=== PATIENT | male | born 1995 | race African-American/Black ===

== ENCOUNTER 2022-01-20 04:24 | Emergency (ER) | payer BC, SELFPAY ==
[2022-01-20 04:33] VITALS: BP 146/88; PULSE 80; RESP 12; TEMP 36.7; O2SAT 100; BMI 23.6
[2022-01-20 04:52] LABS: MANUAL DIFF FLAG NO
[2022-01-20 04:54] LABS: Basophils Absolute Auto 0.1 X10*3/uL (0.0-0.2); Eosinophils Absolute Auto 0.3 X10*3/uL (0.0-0.4); Eosinophils Percent Auto 3.9 % (0-4); Hematocrit 44.5 % (42.0-52.0); Hemoglobin 14.9 g/dl (14.0-18.0); Imm Gran Abs Auto 0.02 X10*3/uL (0.00-0.03); Imm Gran Pct Auto 0.3 % (0.0-0.4); Lymphocytes Absolute Auto 1.9 X10*3/uL (1.2-4.9); Mean Corpuscular HGB Conc 33.5 g/dl (31.0-36.0); Mean Corpuscular Hemoglobin 29.9 pg (27.0-33.0); Mean Corpuscular Volume 89.2 fL (80.0-98.0); Mean Platelet Volume 9.8 fL (9.4-12.4); Monocytes Absolute Auto 0.7 X10*3/uL (0.1-1.2); Monocytes Percent Auto 9.4 % (2-11); Neutrophils Percent Auto 58.4 % (45-73); Platelet Count 277 X10*3/uL (160-400); Red Blood Count 4.99 X10*6/uL (4.60-5.80); Red Cell Distribution Width 12.4 % (11.0-16.0); White Blood Count 6.9 X10*3/uL (4.8-10.8)
[2022-01-20 05:09] LABS: Appearance Urine Clear; Color Urine Yellow; Glucose Urine UA Negative (Negative); Leukocyte Esterase Urine Negative (Negative); Nitrite Urine Negative (Negative); Urine Blood Negative (Negative); Urine Ketones Negative (Negative); Urine Protein Negative (Neg-Trace)
[2022-01-20 05:13] LABS: Alanine Aminotransferase 16 U/L (0-40); Albumin Level 4.6 g/dL (3.5-5.0); Alkaline Phosphatase 54 U/L (39-117); Anion Gap 16 (12-20); Aspartate Amino Transferase 18 U/L (5-37); Bilirubin Total 0.5 mg/dL (0.0-1.0); Blood Urea Nitrogen 18 mg/dL (9-16); Calcium 10.3 mg/dL (8.4-10.2); Carbon Dioxide 24 mmol/L (22-29); Chloride 105 mmol/L (96-108); Creatinine Clr Calc Pharmacy 109.9; Estimated Glomerular Filt Rate > 60; Glucose Random 95 mg/dL (60-115); Potassium 4.4 mmol/L (3.3-5.1); Sodium 141 mmol/L (135-145); Total Protein 8.2 g/dL (6.5-8.0)
[2022-01-20 05:25] LABS: Amphetamine Screen Urine Not Detected (Not Detect); Barbiturates, Urine Not Detected (Not Detect); Benzodiazepines Screen Urine Not Detected (Not Detect); Cannabinoid Screen Urine Not Detected (Not Detect); Cocaine Screen Urine Not Detected (Not Detect); Fentanyl, urine Not Detected (Not Detect); Opiate Screen Urine Not Detected (Not Detect); Phencyclidine Screen Urine Not Detected (Not Detect)
--- NOTE | 2022-01-20 08:05 | ED_ITS ---
HPI - Dizziness General Chief Complaint: Dizziness Stated Complaint: Got into stuff Time Seen by Provider: 01/20/22 08:04 Source: patient Mode of arrival: ambulatory Limitations: no limitations History of Present Illness HPI Narrative: 26 yo male with no PMH here with c/o insomnia, depression, feeling off since s moking marijuana not from a dispensary. When he smoked it he was hallucinating hyper and feeling off. He hasn't smoked since then but just doesn't feel like himself. He overall feels depressed. He has body pain, is tired, has lost his appetite but not losing weight. He hasn't seen anyone for this. MD elicited complaint: lightheadedness Onset (ago): week(s) (few) Timing: gradual onset Severity: mild Description: lightheadedness and other (feels off) Context: other (started after smoking marijuana) History of similar symptoms: No Exacerbating factors: nothing Relieving factors: nothing Associated symptoms: malaise and other (anorexia, depression, insomnia) Related Data Previous Rx's Medication Instructions Recorded hydroxyzine HCl 50 mg tablet 50 mg PO BEDTIME PRN anxiety #30 01/20/22 tabs Allergies Allergy/AdvReac Type Severity Reaction Status Date / Time aspirin AdvReac Unknown Verified 01/20/22 04:33 ibuprofen AdvReac Unknown Verified 01/20/22 04:33 Review of Systems Review of Systems: Constitutional : No Fever, No Chills, pos anorexia, no weight loss ENT/Mouth : No Ear Pain, No Nasal Congestion, No sore throat Eyes: No Eye Pain, No Swelling, No Redness Cardiovascular : No Chest Pain, No SOB Respiratory : No Cough, No Sputum, No Dyspnea Gastrointestinal : No Nausea, No Vomiting, No Diarrhea, No Hematochezia, No Melena Genitourinary : No Dysuria, No Urinary Frequency, No Hematuria Musculoskeletal : pos Myalgias Skin : No Skin Lesions, No rash Neuro : No Weakness, No Numbness, No Paresthesias, No Dizziness, No Headache Psych : positive Anxiety, positive Depression, no SI/HI, pos insomnia Heme/Lymph: No Lymphadenopathy Endocrine : No Polyuria, No Polydipsia All other systems reviewed and are negative [facility] Past Medical History Attestation statement: The following information was validated with the patient. Medical History No pertinent past medical history Social History Social History (Updated 01/20/22 @ 08:39 by Elena Topete DO) Patient Tobacco Use Status: Never used Tobacco Substance Use Type: Marijuana Advance Directives: Yes Advance Directives Information Provided: Yes Advance Directives on File: No Physical Exam Vital Signs: Vital Signs: Last Vital Signs Temp 98.4 F 01/20/22 09:14 Pulse 68 01/20/22 09:14 Resp 24 H 01/20/22 09:14 BP 152/79 H 01/20/22 09:14 Pulse Ox 100 01/20/22 09:14 O2 Del Method 01/20/22 09:14 BMI result Body Mass Index 23.6 Appearance: Alert. Oriented X3. No acute distress. Flat affect, yawning Eyes: Pupils equal, round and reactive to light. ENT: Pharynx normal. Neck: Normal inspection. Neck supple. CVS: Normal heart rate and rhythm. Pulses normal. Respiratory: No respiratory distress. Breath sounds normal. Abdomen: Soft and nontender. Skin: Skin warm and dry. Normal skin color. Normal skin turgor. Extremities: No lower extremity edema. No calf ttp Neuro: Oriented X 3. No motor deficit. No sensory deficit. Steady gait Course Course Course Narrative: feels better after ativan CARE team saw patient not an inherent risk okay for DC - depression before the marijuana recently. To be referred to [facility] on board MDM - Dizziness MDM Narrative Medical decision making narrative: 26 yo male with no sig PMH here with a constellation of symptoms - anorexia, insomnia, feeling off, had hallucinations, has some depression - not himself since smoking THC 3 weeks ago. Doesn't feel right. He is neurologically intact. Unsure if he was using THC with PCP/cocaine. Possibly umnasked underlying disorder. He does report he has his moments of SI but not currently. At this time will obtain basic labs, TSH and refer to CARE team Lab Data Result diagrams: 01/20/22 04:49 01/20/22 04:49 Labs: Lab Results 01/20/22 01/20/22 01/20/22 Range/Units 04:49 04:49 05:02 WBC 6.9 (4.8-10.8) X10*3/uL RBC 4.99 (4.60-5.80) X10*6/uL Hgb 14.9 (14.0-18.0) g/dl Hct 44.5 (42.0-52.0) % MCV 89.2 (80.0-98.0) fL MCH 29.9 (27.0-33.0) pg MCHC 33.5 (31.0-36.0) g/dl RDW 12.4 (11.0-16.0) % Plt Count 277 (160-400) X10*3/uL MPV 9.8 (9.4-12.4) fL Immature Gran % (Auto) 0.3 (0.0-0.4) % Neut % (Auto) 58.4 (45-73) % Lymph % (Auto) 27.0 (20-40) % [place] % (Auto) 9.4 (2-11) % Eos % (Auto) 3.9 (0-4) % Baso % (Auto) 1.0 (0-2) % Lymph # (Auto) 1.9 (1.2-4.9) X10*3/uL [place] # (Auto) 0.7 (0.1-1.2) X10*3/uL Eos # (Auto) 0.3 (0.0-0.4) X10*3/uL Baso # (Auto) 0.1 (0.0-0.2) X10*3/uL Abs Immat Gran (auto) 0.02 (0.00-0.03) X10*3/uL Absolute Neuts (auto) 4.0 (2.0-8.3) x10*3/uL Absolute Nucleated RBC 0.000 (0.0-0.012) X10*3/uL Nucleated RBC % (auto) 0.0 (0.0-0.2) /100WBC Sodium 141 (135-145) mmol/L Potassium 4.4 (3.3-5.1) mmol/L Chloride 105 (96-108) mmol/L Carbon Dioxide 24 (22-29) mmol/L Anion Gap 16 (12-20) BUN 18 H (9-16) mg/dL Creatinine 1.07 (0.5-1.4) mg/dL Estim Creat Clear Calc 109.9 Estimated GFR > 60 Random Glucose 95 (60-115) mg/dL Calcium 10.3 H (8.4-10.2) mg/dL Total Bilirubin 0.5 (0.0-1.0) mg/dL AST 18 (5-37) U/L ALT 16 (0-40) U/L Alkaline Phosphatase 54 (39-117) U/L Total Creatine Kinase 201 H (38-174) U/L Total Protein 8.2 H (6.5-8.0) g/dL Albumin 4.6 (3.5-5.0) g/dL TSH 1.58 (0.32-4.0) uIU/mL Urine Color Yellow Urine Appearance Clear Urine pH 6.0 (5.0-9.0) Ur Specific [place] 1.020 (1.005-1.025) Urine Protein Negative (Neg-Trace) mg/dL Urine Glucose (UA) Negative (Negative) mg/dL Urine Ketones Negative (Negative) mg/dL Urine Blood Negative (Negative) Urine Nitrite Negative (Negative) Ur Leukocyte Esterase Negative (Negative) Urine Opiates Screen (Not Detect) Urine Fentanyl Screen (Not Detect) Ur Barbiturates Screen (Not Detect) Ur Phencyclidine Scrn (Not Detect) Ur Amphetamines Screen (Not Detect) U Benzodiazepines Scrn (Not Detect) Urine Cocaine Screen (Not Detect) U Marijuana (THC) Screen (Not Detect) 01/20/22 Range/Units 05:02 WBC (4.8-10.8) X10*3/uL RBC (4.60-5.80) X10*6/uL Hgb (14.0-18.0) g/dl Hct (42.0-52.0) % MCV (80.0-98.0) fL MCH (27.0-33.0) pg MCHC (31.0-36.0) g/dl RDW (11.0-16.0) % Plt Count (160-400) X10*3/uL MPV (9.4-12.4) fL Immature Gran % (Auto) (0.0-0.4) % Neut % (Auto) (45-73) % Lymph % (Auto) (20-40) % [place] % (Auto) (2-11) % Eos % (Auto) (0-4) % Baso % (Auto) (0-2) % Lymph # (Auto) (1.2-4.9) X10*3/uL [place] # (Auto) (0.1-1.2) X10*3/uL Eos # (Auto) (0.0-0.4) X10*3/uL Baso # (Auto) (0.0-0.2) X10*3/uL Abs Immat Gran (auto) (0.00-0.03) X10*3/uL Absolute Neuts (auto) (2.0-8.3) x10*3/uL Absolute Nucleated RBC (0.0-0.012) X10*3/uL Nucleated RBC % (auto) (0.0-0.2) /100WBC Sodium (135-145) mmol/L Potassium (3.3-5.1) mmol/L Chloride (96-108) mmol/L Carbon Dioxide (22-29) mmol/L Anion Gap (12-20) BUN (9-16) mg/dL Creatinine (0.5-1.4) mg/dL Estim Creat Clear Calc Estimated GFR Random Glucose (60-115) mg/dL Calcium (8.4-10.2) mg/dL Total Bilirubin (0.0-1.0) mg/dL AST (5-37) U/L ALT (0-40) U/L Alkaline Phosphatase (39-117) U/L Total Creatine Kinase (38-174) U/L Total Protein (6.5-8.0) g/dL Albumin (3.5-5.0) g/dL TSH (0.32-4.0) uIU/mL Urine Color Urine Appearance Urine pH (5.0-9.0) Ur Specific [place] (1.005-1.025) Urine Protein (Neg-Trace) mg/dL Urine Glucose (UA) (Negative) mg/dL Urine Ketones (Negative) mg/dL Urine Blood (Negative) Urine Nitrite (Negative) Ur Leukocyte Esterase (Negative) Urine Opiates Screen Not Detected (Not Detect) Urine Fentanyl Screen Not Detected (Not Detect) Ur Barbiturates Screen Not Detected (Not Detect) Ur Phencyclidine Scrn Not Detected (Not Detect) Ur Amphetamines Screen Not Detected (Not Detect) U Benzodiazepines Scrn Not Detected (Not Detect) Urine Cocaine Screen Not Detected (Not Detect) U Marijuana (THC) Screen Not Detected (Not Detect) Discharge Plan Discharge Clinical Impression: Depression Qualifiers: Depression Type: unspecified Qualified Code(s): F32.A - Depression, unspecified Patient Disposition: Home, Self-Care Instructions: Depression (ED) Additional Instructions: return to ED for any worsening symptoms or concerns a referral for [facility] is being put in for you Prescriptions: New hydroxyzine HCl 50 mg tablet 50 mg PO BEDTIME PRN (Reason: anxiety) Qty: 30 0RF Stand Alone Forms: Work/School Release
[2022-01-20] MEDS: LORazepam 1 MG TABLET PO (08:46)
[2022-01-20 08:57] LABS: TSH reflex Free T4 1.58 uIU/mL (0.32-4.0)
[2022-01-20 09:14] VITALS: BP 152/79; PULSE 68; RESP 24; TEMP 36.9; O2SAT 100
--- NOTE | 2022-01-20 10:47 | MHC.CARE ---
CARE team met with pt for Risk assessment. Pt self presents to ED for depression, insomnia and loss of appetite. Upon approach pt was observed sitting in bed, dressed appropriate for weather and well groomed. Pt reports feeling depressed and ?off?, affect congruent with mood. Pt?s speech was low and eye contact intermittent. Pt reports he lives with mom and dad in a multifamily home where his extended family is also living in a different unit. Pt reports he has a history of feeling depressed but this usually only lasts about 1-2 days. Father reports pt?s mother and sister have a history of depression. He reports smoking about 3 weeks ago. He reports feelings of depression occurring about 2 days after smoking marijuana that have been constant since then. Pt denies SI/HI/AH/VH. He reports SI in past, no plan or intent. Pt denies any past treatment. Pt states he would like to return home. He states he feels safe being d/c with referral to therapy and has good support at home.
--- NOTE | 2022-01-21 11:56 | MHC.CARE ---
[employer] attempted to reach pt for followup check in and provide further resources for outpatient therapy due to [facility] wait times. Pt was unable to be reached at both phone numbers. [employer] to attempt at later time.
== END 2022-01-20 10:44 | disposition home or self-care (01) ==
PROVIDERS: Emergency Provider Emergency Medicine
DX: F33.1 Major depressive disorder, recurrent, moderate (principal); R42 Dizziness and giddiness; Z79.899 Other long term (current) drug therapy
CPT/HCPCS: 36415; 80053; 80307; 81003; 82550; 84443; 85025; 99283